=== PATIENT | male | born 1960 | race Caucasian/White ===

== ENCOUNTER 2023-07-15 06:54 | Emergency (ER) | payer OTHER ==
[~2023-07-15] VITALS: Ht 170.2 cm; Wt 99.8 kg
[2023-07-15 07:22] VITALS: BP_SYST 116; PULSE 62; RESP 20; TEMP 98.3; O2SAT 97
[2023-07-15] MEDS ORDERED: TRAM50TA2 PO (09:29)
[2023-07-15] MEDS ORDERED: IBUP-1971 PO (09:29)
[2023-07-15 10:01] VITALS: BP_SYST 191; PULSE 62; RESP 20; TEMP 98.3; O2SAT 97
== END 2023-07-15 10:00 | disposition home or self-care (01) ==
LOC: SED 06:54
DX: M72.2 Plantar fascial fibromatosis (principal); M79.671 Pain in right foot; Z79.899 Other long term (current) drug therapy
CPT/HCPCS: 99283

== ENCOUNTER 2023-09-03 03:48 | Emergency (ER) | payer OTHER ==
[~2023-09-03] VITALS: Ht 188 cm; Wt 99.3 kg
[~2023-09-03 03:48] MED LIST: IBUP-1971 PO; TRAM50TA2 PO
[2023-09-03 03:55] VITALS: BP_SYST 129; PULSE 63; RESP 16; TEMP 97.9; O2SAT 99
[2023-09-03 05:06] LABS: BILIRUBIN,URINE NEGATIVE (NEGATIVE); BLOOD, URINE NEGATIVE (NEGATIVE); CLARITY/URINE CLEAR (CLEAR); COLOR,URINE YELLOW (YELLOW); GLUCOSE,URINE NEGATIVE (NEGATIVE); KETONES,URINE NEGATIVE (NEGATIVE); LEUKOCYTE ESTERASE ,URINE NEGATIVE (NEGATIVE); NITRITE, URINE NEGATIVE (NEGATIVE); PROTEIN URINE NEGATIVE (NEGATIVE); UROBILINOGEN,URINE 0.2 (0.2-1.0)
[2023-09-03] MEDS ORDERED: ONDANSETRON HCL 4 MG/2 ML VIAL IVP ONE (05:15)
[2023-09-03] MEDS ORDERED: NACL 0.9% 1,000 ML IV ONE (05:15)
[2023-09-03] MEDS ORDERED: KETOROLAC TROMETHAMINE 15 MG VIAL IVP ONE (05:15)
[2023-09-03 06:22] LABS: BASOPHILS % (AUTO) 0.4 % (0.0-2.0); EOSINOPHILS # (AUTO) 0.2 K/uL (0.0-0.4); EOSINOPHILS % (AUTO) 3.3 % (0.0-4.0); HEMATOCRIT 38.2 % (36-54); HEMOGLOBIN 13.3 g/dL (14.0-18.0); LYMPHOCYTES # (AUTO) 1.8 K/uL (1.0-5.5); LYMPHOCYTES % (AUTO) 30.8 % (20.5-51.5); MEAN CORPUSCULAR HEMOGLOBIN 30 pg (27-31); MEAN CORPUSCULAR HGB CONC 35 % (32-36); MEAN CORPUSCULAR VOLUME 87 fL (79.0-98.0); MONOCYTES # (AUTO) 0.4 K/uL (0.0-1.0); MONOCYTES % (AUTO) 7.2 % (1.7-9.3); NEUTROPHILS # (AUTO) 3.4 K/uL (1.8-7.7); NEUTROPHILS % (AUTO) 58.3 % (40.0-70.0); PLATELET COUNT (AUTO) 181 K/uL (130-430); RED BLOOD CELL COUNT(AUTO) 4.38 MIL/uL (4.2-6.2); RED CELL DISTRIBUTION WIDTH 13.8 % (9.0-15.0); WHITE BLOOD COUNT (AUTO) 5.8 K/uL (4.8-10.8)
[2023-09-03 06:35] LABS: ALBUMIN 3.4 g/dL (3.4-4.8); BILIRUBIN,DIRECT 0.1 mg/dL (0.0-0.3); CALCIUM 8.1 mg/dL (8.4-11.0); CREATININE 1.51 mg/dL (0.55-1.30); POTASSIUM 3.9 mmol/L (3.5-5.1); TOTAL BILIRUBIN 0.5 mg/dL (0.0-1.0); TOTAL PROTEIN, SERUM 6.2 g/dL (6.4-8.3)
[2023-09-03] MEDS ORDERED: ONDA-8 TL (07:56)
[2023-09-03] MEDS ORDERED: HYDR-3927 PO (07:56)
[2023-09-03] MEDS ORDERED: TAMS-11 PO (07:56)
[2023-09-03 08:24] VITALS: BP_SYST 125; PULSE 66; RESP 18; TEMP 97; O2SAT 97
== END 2023-09-03 08:24 | disposition home or self-care (01) ==
LOC: SED 03:48
DX: R10.9 Unspecified abdominal pain (principal); R11.10 Vomiting, unspecified; M54.50 Low back pain, unspecified; Z79.899 Other long term (current) drug therapy
CPT/HCPCS: 99285; 74176; 96374; 96361; 96375; 80076; 80048; 81001; 83690; 85025; 84484; 36415; 93005; 76376; 81003; J1885; J2405; J7030